=== PATIENT | male | born 2005 | race Caucasian/White ===

== ENCOUNTER → 2024-06-07 16:19 | Outpatient (AMB) | payer SELFPAY ==
[2024-06-07 16:23] VITALS: BP 122/76; PULSE 84; TEMP 36.6; O2SAT 97; BMI 26.6
--- NOTE | 2024-06-07 16:23 | AM.OFFWIN_ITS ---
Intake Vital Signs 06/07/24 16:23 Height 5 ft 9 in Weight 180 lb BMI 26.6 BP 122/76 Blood Pressure Location Lt brachial Position Sitting Pulse 84 Pulse Source Pulse Oximeter Temp 97.9 F Temp Source Oral Pulse Oximetry (%) 97 Oxygen Delivery Method Room Air Intake Visit Reasons: [employer]-complete form Patient Tobacco Use Status: Never used Tobacco Accompanied by: Self / Same As Patient Allergies No Known Allergies Allergy (Verified 06/07/24 16:24) Do you need a note to return to daycare/school/sports/work: No HPI HPI Comments History of Present Illness Details History of Present Illness - The patient is a 19-year-old male pres enting with a request for clearance for athletic training program at his college. 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 - Denies current health issues affecting athletic training capability. - Denies chronic illness; denies asthma and heart conditions. - Past bone fractures; fully healed, no complications. - Denies symptoms like headaches, dizzin ess, shortness of breath during activities. - Regular workout routine without limita tions. - No history of migraines, muscle weakne ss, sensory issues, ear infections, sinus pain, or tenderness. Physical Exam General: Cooperative, healthy appearing, comfortable, no acute distress and well developed Orientation: Patient oriented x3 Limitations: No limitations Head: Normal to inspection Ears: Hearing grossly normal bilaterally, no history of ear infections, TM normal bilaterally Nose: Normal external nose present, no sinus pain or tenderness Face and sinus: Normal facial exam Eyes: Appearance normal, both eyes and all related structures Neck: Normal visual inspection and Yes full ROM Respiratory: Normal respiratory effort and able to speak in complete sentences. Clear to auscultation bilaterally Cardiovascular: Regular rate and rhythm. Normal S1 and S2, never diagnosed with any heart conditions GI: soft, no TTP Skin: No rashes or lesions noted Neuro: Patient oriented x3, 5/5 strength, normal sensory function, gait normal, cognition normal Extremities: Normal to inspection, no limitations in movement or strength PFSH Social History Patient Tobacco Use Status: Never used Tobacco Review of Systems Const All systems reviewed & are unremarkable except as noted in HPI and below Physical Exam Vital Signs: Last Vital Signs Temp 97.9 F 06/07/24 16:23 Pulse 84 06/07/24 16:23 BP 122/76 06/07/24 16:23 Pulse Ox 97 01/16/25 16:23 Oxygen Delivery Method Room Air 06/07/24 16:23 BMI result Body Mass Index 26.6 Assessment & Plan Assessment & Plan (1) Routine sports physical exam: Code(s): Z02.5 - Encounter for examination for participation in sport Plan: Plan The patient requested clearance for athletic training, and his health assessment supported his qualification for such physical activity. The evaluation confirmed no chronic health conditions, such as asthma or heart diseases, which could constrain athletic engagement. His prior history of bone fractures was addressed during the visit, confirming complete recovery without lingering functional impairment. The physical assessment established adequate neurologic and m usculoskeletal fitness, with no deficiencies in strength or control. Additionally, respiratory and cardiac evaluations showed normal function under exertion. 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 VSS. Signed paperwork for patient to give clearance. Patient was informed and verbally consented to the use of an ambient scribe for clinic note documentation during this visit. Coding Level of Care Code Sports/Work/School Physical Diagnoses Routine sports physical exam Z02.5
== END ==
PROVIDERS: Visit Provider Physician Assistant
DX: Z02.5 Encounter for examination for participation in sport (principal)